=== PATIENT | male | born 1970 | race Hispanic/Latino ===

== ENCOUNTER 2018-06-19 02:56 | Emergency (ER) | payer SELFPAY ==
[2018-06-19] MEDS ORDERED: DEXAMETHASONE 10 MG/ML VIAL ONE (03:55)
[2018-06-19] MEDS ORDERED: NA CHLORIDE 0.9% 1,000 ML ONE (03:56)
[2018-06-19] MEDS ORDERED: DIPHENHYDRAMINE 50 MG/ML VIAL ONE (03:56)
[2018-06-19] MEDS ORDERED: METOCLOPRAMIDE 10 MG/2mL INJ ONE (03:56)
[2018-06-19 04:36] LABS: Protime INR 0.98
[2018-06-19 04:37] LABS: Absolute Lymphocytes (CBC) 2.6 K/uL (0.7-4.9); Absolute Monocytes 0.7 K/uL (0.1-1.3); Absolute Neutrophil 4.1 K/uL (1.8-8.0); Basophils % 0.6 % (0-1.3); Hematocrit 44.4 % (39.6-49.0); Lymphocytes % 35.1 % (15.3-44.8); MPV 10.1 fL (7.6-11.3); RBC Red Blood Cell Count 4.84 M/uL (4.33-5.43)
[2018-06-19] MEDS ORDERED: KETOROLAC 30 MG/ML INJ ONE (04:47)
[2018-06-19 04:50] LABS: ALT/SGPT 35 U/L (12-78); AST/SGOT 17 U/L (15-37); Albumin 3.5 g/dL (3.4-5.0); Alkaline Phosphatase 71 U/L (45-117); BUN Blood Urea Nitrogen 23 mg/dL (7-18); Bicarbonate 28 mmol/L (21-32); Bilirubin Direct < 0.1 mg/dL (0-0.2); Bilirubin Total 0.2 mg/dL (0.2-1.0); Glucose Level 93 mg/dL (74-106); Potassium 3.5 mmol/L (3.5-5.1); Protein, Total 6.2 g/dL (6.4-8.2); Sodium Level 144 mmol/L (136-145)
--- NOTE | 2018-06-19 05:50 | ER ---
Nurse's Notes [facility] Name: Rodrigue Gallagher Age: 48 yrs Sex: Male : 1970 Arrival Date: 06/19/2018 Time: 02:57 Bed 20 Private MD: Diagnosis: Acute Headache Presentation: 06/19 03:06 Presenting complaint: Patient states: "I am having a migraine headache since about 2230 jd3 last night with a 10/10 pain.". Transition of care: patient was not received from another setting of care. Onset of symptoms was June 18, 2018. Risk Assessment: Do you want to hurt yourself or someone else? Patient reports no desire to harm self or others. Initial Sepsis Screen: Does the patient meet any 2 criteria? No. Patient's initial sepsis screen is negative. Does the patient have a suspected source of infection? No. Patient's initial sepsis screen is negative. Care prior to arrival: None. 03:06 Method Of Arrival: Ambulatory j 03:06 Acuity: FILIPE 3 jd3 Triage Assessment: 03:14 Headache History: The patient has had previous headaches and this one is similar to jd3 previous episodes. Pain: Pain currently is 10 out of 10 on a pain scale. Pain began 4 hours ago. Historical: - Allergies: 03:09 No Known Allergies; jd3 - Home Meds: 03:09 "Acid reflux medication" [Active]; jd3 - PMHx: 03:09 acid reflux; jd3 - PSHx: 03:09 None; jd3 - Immunization history:: Adult Immunizations up to date. - Social history:: Smoking status: Patient uses tobacco products, smokes one pack cigarettes per day. - Ebola Screening: : Patient negative for fever greater than or equal to 101.5 degrees Fahrenheit, and additional compatible Ebola Virus Disease symptoms. Screenin:14 Abuse screen: Denies threats or abuse. Nutritional screening: No deficits noted. jd3 Tuberculosis screening: No symptoms or risk factors identified. Fall Risk Ambulatory Aid- None/Bed Rest/Nurse Assist (0 pts). Gait- Normal/Bed Rest/Wheelchair (0 pts) Mental Status- Oriented to own ability (0 pts). Total Jara Fall Scale indicates No Risk (0-24 pts). Assessment: 03:11 General: Appears uncomfortable, Behavior is cooperative, appropriate for age, restless. jd3 Pain: Complains of pain in head Quality of pain is described as sharp, Also complains of photophobia. Neuro: Level of Consciousness is awake, alert, obeys commands, Oriented to person, place, time, situation, Appropriate for age Gait is steady, Speech is normal, Facial symmetry appears normal. Cardiovascular: Capillary refill < 3 seconds Patient's skin is warm and dry. Respiratory: Airway is patent Respiratory effort is even, unlabored, Respiratory pattern is regular, symmetrical. GI: No signs and/or symptoms were reported involving the gastrointestinal system. Abdomen is round non-distended. : No signs and/or symptoms were reported regarding the genitourinary system. EENT: No signs and/or symptoms were reported regarding the EENT system. Derm: Skin is intact, Skin is dry, Skin is normal, Skin temperature is warm. Musculoskeletal: Circulation, motion, and sensation intact. Range of motion: intact in all extremities. 04:06 Reassessment: Patient appears in no apparent distress at this time. Patient and/or jd3 family updated on plan of care and expected duration. Pain level reassessed. Patient is alert, oriented x 3, equal unlabored respirations, skin warm/dry/pink. 05:13 Reassessment: Patient appears in no apparent distress at this time. Patient and/or jd3 family updated on plan of care and expected duration. Pain level reassessed. Patient is alert, oriented x 3, equal unlabored respirations, skin warm/dry/pink. 06:09 Reassessment: Patient appears in no apparent distress at this time. Patient and/or jd3 family updated on plan of care and expected duration. Pain level reassessed. Patient is alert, oriented x 3, equal unlabored respirations, skin warm/dry/pink. Patient states feeling better. Vital Signs: 03:10 BP 120 / 80; Pulse 52; Resp 18 S; Temp 97.6(O); Pulse Ox 98% on R/A; Weight 83.91 kg jd3 (R); Height 5 ft. 7 in. (170.18 cm) (R); Pain 10/10; 04:06 BP 111 / 75; Pulse 60; Resp 15 S; Pulse Ox 97% on R/A; jd3 05:14 BP 100 / 55; Pulse 59; Resp 16 S; Pulse Ox 97% on R/A; jd3 03:10 Body Mass Index 28.97 (83.91 kg, 170.18 cm) jd3 ED Course: 02:57 Patient arrived in ED. ds1 03:02 Julio Cesar Parks MD is Attending Physician. wa 03:06 Billy Brown, FRANKO is Primary Nurse. jd3 03:08 Triage completed. jd3 03:11 Arm band placed on. jd3 03:14 Patient has correct armband on for positive identification. Bed in low position. Call jd3 light in reach. Side rails up X 1. Adult w/ patient. 03:45 Inserted saline lock: 20 gauge in right antecubital area, using aseptic technique. jd3 Blood collected. placed by [facility] tech. 03:50 Hepatic Function Sent. jd3 03:50 Basic Metabolic Panel Sent. jd3 03:50 CBC with Diff Sent. jd3 04:07 Head Brain Wo Cont CT In Process Unspecified. EDMS 04:17 CT completed. Patient tolerated procedure well. Patient moved to CT via stretcher. Patient moved back from CT. 05:50 Mono Elmore MD is Referral Physician. wa 06:07 No provider procedures requiring assistance completed. IV discontinued, intact, jd3 bleeding controlled, No redness/swelling at site. Pressure dressing applied. Administered Medications: 04:04 Drug: NS 0.9% 1000 ml Route: IV; Rate: 1 bolus; Site: right antecubital; jd3 04:40 Follow up: Response: No adverse reaction; IV Status: Completed infusion; IV Intake: jd3 1000ml 04:05 Drug: Decadron - Dexamethasone 10 mg Route: IVP; Site: right antecubital; jd3 04:40 Follow up: Response: No adverse reaction jd3 04:05 Drug: Reglan 5 mg Route: IVP; Site: right antecubital; jd3 04:40 Follow up: Response: No adverse reaction jd3 04:05 Drug: Benadryl 12.5 mg Route: IVP; Site: right antecubital; jd3 04:40 Follow up: Response: No adverse reaction jd3 04:39 Drug: TORadol 30 mg Route: IVP; Site: right antecubital; jd3 06:09 Follow up: Response: No adverse reaction jd3 Intake: 04:40 IV: 1000ml; Total: 1000ml. jd3 Outcome: 05:50 Discharge ordered by . yessica 06:08 Discharged to home ambulatory, with family. jd3 06:08 Condition: stable 06:08 Discharge instructions given to patient, Instructed on discharge instructions, follow up and referral plans. medication usage, Demonstrated understanding of instructions, follow-up care, medications, Prescriptions given X 2. 06:09 Patient left the ED. jd3 Signatures: Dispatcher [employer] EDLacho Chaves Demi ds1 Julio Cesar Parks MD MD wa Davies, Jonathon RN RN jd3 Corrections: (The following items were deleted from the chart) 04:06 03:50 URINE DRUG SCREEN+CHEM UR.LAB.LISSAZ drawn and sent. jblue HIDALGO
--- NOTE | 2018-06-19 05:51 | EDPHYS ---
Physician Documentation [facility] Name: Rodrigue Gallagher Age: 48 yrs Sex: Male : 1970 Arrival Date: 06/19/2018 Time: 02:57 Bed 20 Private MD: ED Physician Julio Cesar Parks HPI: 06/19 04:06 This 48 yrs old Male presents to ER via Ambulatory with complaints of Headache.wa 04:06 The patient complains of pain to the right eye. mt Historical: - Allergies: 03:09 No Known Allergies; jd3 - Home Meds: 03:09 "Acid reflux medication" [Active]; jd3 - PMHx: 03:09 acid reflux; jd3 - PSHx: 03:09 None; jd3 - Immunization history:: Adult Immunizations up to date. - Social history:: Smoking status: Patient uses tobacco products, smokes one pack cigarettes per day. - Ebola Screening: : Patient negative for fever greater than or equal to 101.5 degrees Fahrenheit, and additional compatible Ebola Virus Disease symptoms. Vital Signs: 03:10 BP 120 / 80; Pulse 52; Resp 18 S; Temp 97.6(O); Pulse Ox 98% on R/A; Weight 83.91 kg jd3 (R); Height 5 ft. 7 in. (170.18 cm) (R); Pain 10/10; 04:06 BP 111 / 75; Pulse 60; Resp 15 S; Pulse Ox 97% on R/A; jd3 05:14 BP 100 / 55; Pulse 59; Resp 16 S; Pulse Ox 97% on R/A; jd3 03:10 Body Mass Index 28.97 (83.91 kg, 170.18 cm) jd3 MDM: 03:02 Patient medically screened. 06/19 03:35 Order name: Basic Metabolic Panel; Complete Time: 04:52 06/19 03:33 Order name: Head Brain Wo Cont CT 06/19 03:35 Order name: CBC with Diff; Complete Time: 04:52 06/19 03:35 Order name: Hepatic Function; Complete Time: 04:52 06/19 03:35 Order name: PT-INR; Complete Time: 04:52 06/19 03:34 Order name: Oxygen: high flow O2 via NRBM; Complete Time: 03:40 06/19 03:35 Order name: IV Saline Lock; Complete Time: 03:50 mt 06/19 03:35 Order name: Labs collected and sent; Complete Time: 03:50 mt Administered Medications: 04:04 Drug: NS 0.9% 1000 ml Route: IV; Rate: 1 bolus; Site: right antecubital; jd3 04:40 Follow up: Response: No adverse reaction; IV Status: Completed infusion; IV Intake: jd3 1000ml 04:05 Drug: Decadron - Dexamethasone 10 mg Route: IVP; Site: right antecubital; jd3 04:40 Follow up: Response: No adverse reaction jd3 04:05 Drug: Reglan 5 mg Route: IVP; Site: right antecubital; jd3 04:40 Follow up: Response: No adverse reaction jd3 04:05 Drug: Benadryl 12.5 mg Route: IVP; Site: right antecubital; jd3 04:40 Follow up: Response: No adverse reaction jd3 04:39 Drug: TORadol 30 mg Route: IVP; Site: right antecubital; jd3 06:09 Follow up: Response: No adverse reaction jd3 Disposition: 06/19/18 05:50 Discharged to Home. Impression: Acute Headache. - Condition is Stable. - Discharge Instructions: General Headache Without Cause, [id number]. - Prescriptions for ketorolac 10 mg Oral tablet - take 1 tablet by ORAL route every 8-12 hours not to exceed 40 mg in 24hrs; 15 tablet. Compazine 10 mg Oral Tablet - take 1 tablet by ORAL route every 8 hours As needed; 10 tablet. - Medication Reconciliation Form, Thank You Letter, Antibiotic Education, Prescription Opioid Use form. - Follow up: Mono Elmore MD; When: 1 - 2 days; Reason: Recheck today's complaints. - Problem is new. - Symptoms have improved. - Notes: follow up with the headache doctor for further evaluation Addendum: 06/20/2018 09:01 Addendum: cc: GURVINDER. HPI: 48 yo M. h/o HOLLINS. c/o HOLLINS x 1 week. describes as throbbing. R side w a face. behind right eye. gradual onset. similar to HAs from previous. scripted for meds by clinic 2 days ago but not improving. denies fever or chills. denies vomiting. denies dizziness, neck pain, or photophobia. allg: NKDA. PMHx: Acid Reflux. PsurgHx: none. SHx: denies tobacco. ROS: HOLLINS. otherwise all systems reviewed and negative. Exam: Const: NAD. Alert . HEENT: normocephalic. atraumatic. CVS: NS1S2. no murmurs. Resp: clear. Abd: soft. non-tender. Musc: no swelling or edema. Skin: no rash. Neuro: alert. normal motor. no sensational deficit. no neck stiffness. Ddx: HOLLINS. migraine. Will check CT r/o alternate dx. Results: head CT nml. labs wnl. reexam: HOLLINS resolved prior to d/c. pt referred to neuro. d/c'd with Compazine an Toradol prn for HAs. Signatures: Dispatcher [employer] EDMS Julio Cesar Parks MD MD wa Davies, Jonathon, RN RN jd3 Corrections: (The following items were deleted from the chart) 06/19 04:06 03:35 URINE DRUG SCREEN+CHEM UR.LAB.BRZ ordered. EDMS EDMS 06:09 05:50 06/19/2018 05:50 Discharged to Home. Impression: Acute Headache. Condition is jd3 Stable. Forms are Medication Reconciliation Form, Thank You Letter, Antibiotic Education, Prescription Opioid Use. Follow up: Mono Elmore; When: 1 - 2 days; Reason: Recheck today's complaints. Problem is new. Symptoms have improved. yessica
--- NOTE | 2018-06-19 08:21 | RAD REPORT ---
EXAM DESCRIPTION: CT - Head Brain Wo Cont - 06/19/2018 6:45 am CLINICAL HISTORY: Headache COMPARISON: None. TECHNIQUE: Computed axial tomography of the head was obtained. IV contrast was not requested. A preliminary report generated by virtual radiologic and review prior to dictation All CT scans are performed using dose optimization technique as appropriate and may include automated exposure control or mA/KV adjustment according to patient size. FINDINGS: An intracranial bleed is not seen . The ventricles are normal in caliber. No extra-axial fluid collection is noted. Fluid within the sinuses/ mastoids is not seen. IMPRESSION: No acute intracranial abnormality is seen. If patient's symptoms persist MRI of the bra in would be recommended.
== END 2018-06-19 06:09 | disposition home or self-care (01) ==
LOC: ER 02:56
DX: R51 Headache (principal); K21.9 Gastro-esophageal reflux disease without esophagitis; F17.210 Nicotine dependence, cigarettes, uncomplicated; Z79.899 Other long term (current) drug therapy
CPT/HCPCS: 36415; 70450; 80048; 80076; 85025; 85610; 96361; 96374; 96375; 99284; J1100; J2765; J7030